=== PATIENT | male | born 1980 ===

== ENCOUNTER 2016-10-06 13:41 | Observation (INO) | payer OTHER ==
[~2016-10-06] VITALS: Ht 175.3 cm; Wt 86.8 kg
[2016-10-06 14:26] VITALS: BP 123/87; PULSE 76; TEMP 98
[2016-10-06] MEDS ORDERED: KLONOPIN 0.5MG0.5 MG PO (14:41)
[2016-10-06] MEDS ORDERED: CLARITIN 1010 MG/TAB PO (14:41)
[2016-10-06] MEDS ORDERED: TOPAMAX 100MG100 M1 PO (14:42)
[2016-10-06] MEDS ORDERED: VITAMIN B-2 100MG (14:42)
[2016-10-06] MEDS ORDERED: REQUIP 1MG T1 MG/TAB PO (14:43)
[2016-10-06] MEDS ORDERED: MINIPRESS2 MG (14:43)
[2016-10-06] MEDS ORDERED: ADDERALL10 MG PO (14:44)
[2016-10-06] MEDS ORDERED: DESYREL 100MG100 MG PO (14:45)
[2016-10-06] MEDS ORDERED: ADDERALL20 MG PO (14:45)
[2016-10-06] MEDS ORDERED: ZESTRIL 10MG10 MG PO (14:46)
[2016-10-06] MEDS ORDERED: MAGNESIUM200 MG PO (14:46)
[2016-10-06] MEDS ORDERED: RT ADVAIR 128 DISKUS IH (14:47)
[2016-10-06] MEDS ORDERED: PROAIR HFA0.09 MG/AC IH (14:47)
[2016-10-06] MEDS ORDERED: MAXALT10 MG (14:48)
[2016-10-06] MEDS ORDERED: FLEXERIL 1010 MG/TAB PO (14:48)
[2016-10-06] MEDS ORDERED: MELATONIN5 M1 SL (14:49)
[2016-10-06] MEDS ORDERED: LIDODERM 5% PATC1 EA TP (14:50)
[2016-10-06] MEDS ORDERED: VOLTAREN GEL 1%1 TU TP (14:50)
[2016-10-06 14:51] VITALS: BP 123/87; PULSE 75; TEMP 98.2
[2016-10-06 17:49] VITALS: BP 117/82; PULSE 87; TEMP 98.7
== END 2016-10-06 19:45 | disposition home or self-care (01) ==
LOC: SDCO 13:41 → SURG 13:42 → SDCO 15:46 → SURG 15:47 → SDCO 18:15 → SURG 19:45
DX: N20.1 Calculus of ureter (principal)
CPT/HCPCS: C1769; C2617; G0378; G0379; J0690; J1100; J1885; J2250; J2405; J2704; J2765; J3010; J7030; Q9967